=== PATIENT | male | born 1985 ===

== ENCOUNTER 2023-05-15 09:48 | Outpatient (OUT) | payer OTHER, SELFPAY ==
--- NOTE | 2023-05-15 | XR_ITS ---
The [address] [address] Patient Name: QUENTIN ART MRN: [id number] date: 1985 Sex: M Assigned Patient Location: [facility] Current Patient Location: [facility] Accession/Order Number: [id number] Exam Date: 05/15/2023 10:15 Report Date: 05/15/2023 16:16 At the request of: JESSICA MONTOYA Procedure: XR ankle LT min 3V PROCEDURE: XR ankle LT min 3V HISTORY: PODIATRY IMAGING COMPARISON: XR ankle left 05/05/2023 FINDINGS: BONES:[Fracture through distal fibula with repair via a lateral plate and screws and 2 additional anterior-posterior placed screws. Band effusion of the distal tibia-fibula syndesmosis. SOFT TISSUES:Moderate soft tissue swelling surrounding the ankle and proximal foot. EFFUSION:None visible. OTHER: Negative. XR/XR ankle LT min 3V IMPRESSION: 1. Stable surgical changes without evidence of hardware failure or change in alignment. 2. Stable distal fibular fracture without appreciable callus formation at this time. Electronically authenticated by: ERICA ZAIDI Date: 05/15/2023 16:16
== END 2023-05-15 09:49 | disposition home or self-care (01) ==
PROVIDERS: Visit Provider Podiatrist Foot & Ankle Surgery
DX: M25.572 Pain in left ankle and joints of left foot (principal)
CPT/HCPCS: 73610

== ENCOUNTER 2023-05-30 10:55 | Outpatient (OUT) | payer OTHER, SELFPAY ==
--- NOTE | 2023-05-30 | XR_ITS ---
The [place] [id number] Patient Name: QUENTIN ART MRN: [id number] date: 1985 Sex: M Assigned Patient Location: [facility] Current Patient Location: [facility] Accession/Order Number: [id number] Exam Date: 05/30/2023 11:10 Report Date: 05/30/2023 11:44 At the request of: JESSICA MONTOYA Procedure: XR ankle LT min 3V XR ankle LT min 3V, 05/30/2023 11:10 AM EDT, [place]001 INDICATION: LEFT ANKLE PAIN COMPARISON: Radiographs from 05/15/2023. TECHNIQUE: AP, lateral and oblique views of the ankle are submitted. FINDINGS: Post surgical changes are again noted, including internal plate and screw fusion across the distal fibula and soft tissue anchors along the medial aspect of the tibia and lateral aspect of the fibula. The components appear intact and unchanged in position. The bones appear well mineralized. Alignment appears unchanged. The joint spaces are maintained. No destructive osseous process is identified. There is mild lateral soft tissue swelling. XR/XR ankle LT min 3V IMPRESSION: Stable postsurgical changes compared to 05/15/2023. No acute fracture or component failure is identified. Electronically authenticated by: JAY ARAIZA Date: 05/30/2023 11:44
== END 2023-05-30 10:56 | disposition home or self-care (01) ==
LOC: RAD 10:55
PROVIDERS: Visit Provider Podiatrist Foot & Ankle Surgery
DX: M25.572 Pain in left ankle and joints of left foot (principal)
CPT/HCPCS: 73610

== ENCOUNTER 2023-06-20 10:01 | Outpatient (OUT) | payer OTHER, SELFPAY ==
--- NOTE | 2023-06-20 | XR_ITS ---
[address] [address] Patient Name: QUENTIN ART MRN: [id number] date: 1985 Sex: M Assigned Patient Location: [facility] Current Patient Location: [facility] Accession/Order Number: [id number] Exam Date: 06/20/2023 10:20 Report Date: 06/20/2023 11:06 At the request of: JESSICA MONTOYA Procedure: XR ankle LT min 3V Exam: Radiographs: XR ankle LT min 3V Reason for exam: LEFT ANKLE PAIN Comparison: None XR/XR ankle LT min 3V IMPRESSION: Plate and screw fixation across a distal left fibula metaphysis fracture. Syndesmotic screw. Left ankle soft tissue swelling. Hardware is intact. Remainder of the left ankle is unremarkable. Electronically authenticated by: ANGEL GARCIA Date: 06/20/2023 11:06
== END 2023-06-20 10:02 | disposition home or self-care (01) ==
LOC: RAD 10:01
PROVIDERS: Visit Provider Podiatrist Foot & Ankle Surgery
DX: M25.572 Pain in left ankle and joints of left foot (principal)
CPT/HCPCS: 73610

== ENCOUNTER 2023-07-11 12:00 | Outpatient (OUT) | payer OTHER, SELFPAY ==
--- NOTE | 2023-07-11 | XR_ITS ---
The [address] [address] Patient Name: QUENTIN ART MRN: [id number] date: 1985 Sex: M Assigned Patient Location: [facility] Current Patient Location: [facility] Accession/Order Number: [id number] Exam Date: 07/11/2023 10:35 Report Date: 07/11/2023 11:25 At the request of: JESSICA MONTOYA Procedure: XR ankle LT min 3V PROCEDURE: XR ankle LT min 3V HISTORY: LEFT ANKLE F/U AFTER SX COMPARISON: XR ankle left 06/20/2023 FINDINGS: BONES:Prior repair of distal fibula via a lateral plate and screws. Band fusion of the distal tibia and fibula syndesmosis. Intact, uniform appearance of the ankle mortise. SOFT TISSUES:No visible soft tissue swelling. EFFUSION:None visible. OTHER: Negative. XR/XR ankle LT min 3V IMPRESSION: 1. Stable surgical changes without evidence of hardware failure or change in alignment. Electronically authenticated by: ERICA ZAIDI Date: 07/11/2023 11:25
== END 2023-07-11 12:01 | disposition home or self-care (01) ==
LOC: RAD 12:00
PROVIDERS: Visit Provider Podiatrist Foot & Ankle Surgery
DX: S82.852A Displaced trimalleolar fracture of left lower leg, initial encounter for closed fracture (principal)
CPT/HCPCS: 73610

== ENCOUNTER 2023-08-29 10:09 | Outpatient (OUT) | payer OTHER, SELFPAY ==
--- NOTE | 2023-08-29 | XR_ITS ---
[address] [address] Patient Name: QUENTIN ART MRN: [id number] date: 1985 Sex: M Assigned Patient Location: [facility] Current Patient Location: [facility] Accession/Order Number: [id number] Exam Date: 08/29/2023 10:09 Report Date: 08/29/2023 22:00 At the request of: JESSICA MONTOYA Procedure: XR ankle LT min 3V Exam: Radiographs: XR ankle LT min 3V Reason for exam: LEFT ANKLE PAIN Comparison: Plain films dated 07/11/2023 XR/XR ankle LT min 3V IMPRESSION: Plate and screw internal fixation of the distal left fibula. Hardware is intact. Mild left ankle soft tissue swelling. Remainder of the left ankle radiographs is unremarkable. Electronically authenticated by: ANGEL GARCIA Date: 08/29/2023 22:00
== END 2023-08-29 10:10 | disposition home or self-care (01) ==
LOC: RAD 10:09
PROVIDERS: Visit Provider Podiatrist Foot & Ankle Surgery
DX: M25.572 Pain in left ankle and joints of left foot (principal)
CPT/HCPCS: 73610